=== PATIENT | male | born 1970 | race Caucasian/White ===

== ENCOUNTER 2021-12-29 02:13 | Emergency (ER) | payer BC ==
[2021-12-29 02:41] VITALS: RESP 20; BMI 34.8
[2021-12-29] MEDS ORDERED: THIAMINE HCL 200 MG/2 ML VIAL IVPB ONE (03:34)
[2021-12-29] MEDS ORDERED: SODIUM CHLORIDE 0.9% 500 ML INFUS.BAG IV ONE (03:34)
[2021-12-29] MEDS ORDERED: THIAMINE HCL 200 MG/2 ML VIAL ONE (03:59)
[2021-12-29 04:16] LABS: BASO % 0.4 % (0-2.0); EOS % 0.2 % (0-4.5); HEMATOCRIT 43.1 % (35.4-49); HEMOGLOBIN 15.2 GM/dL (11.7-16.9); LYMPH % 14.4 % (8-40); MCHC 35.3 g/dl (32.0-35.9); MEAN CELL VOLUME 96.1 fl (80-96); MEAN PLT VOLUME 7.8 fl (7.5-11.1); MONO % 5.7 % (3.8-10.2); NEUT % 79.3 % (42.8-82.8); PLATELET COUNT 275 10^3/uL (134-434); RBC 4.48 M/mm3 (4.00-5.60); RDW 13.4 % (11.9-15.9); WHITE BLOOD COUNT 7.9 K/mm3 (4.0-10.0)
[2021-12-29 04:18] LABS: INR 1.12 (0.83-1.09); PROTHROMBIN TIME (PATIENT) 12.9 SEC (9.7-13.0)
[2021-12-29 04:21] LABS: ACTIVATED PTT 31.7 SECONDS (25.2-36.5)
[2021-12-29 04:33] LABS: CALCIUM 9.3 mg/dL (8.5-10.1)
[2021-12-29 04:34] LABS: ALBUMIN 3.8 g/dl (3.4-5.0); BLOOD UREA NITROGEN 14.8 mg/dL (7-18); MAGNESIUM 2.4 mg/dL (1.8-2.4)
[2021-12-29 04:37] LABS: CREATININE 0.8 mg/dL (0.55-1.3); PHOSPHOROUS 3.7 mg/dL (2.5-4.9)
[2021-12-29 04:39] LABS: BILIRUBIN,TOTAL 0.6 mg/dL (0.2-1); TOT PROT 7.4 g/dl (6.4-8.2)
[2021-12-29] MEDS ORDERED: POTASSIUM CHLORIDE TABS 20 MEQ TABLET.ER (FP) PO ONE ×2 (04:42→04:43)
[2021-12-29] MEDS ORDERED: MAGNESIUM SULF 50% (8.12 MEQ/2 ML-1 GM VIAL) IVPB ONE (04:53)
[2021-12-29] MEDS ORDERED: MAGNESIUM SULFATE IN WATER 2 GM/50 ML IVPB IVPB ONE (05:33)
[2021-12-29] MEDS: KCL 10 MEQ IVPB 10 MEQ/100 ML INFUS.BAG IVPB SCH ×3 (06:10→07:48)
[2021-12-29 07:33] VITALS: BP 145/93; PULSE 63; TEMP 97.6
== END 2021-12-29 07:56 | disposition home or self-care (01) ==
LOC: JER 02:13
PROC: 3E033GC Introduction of Other Therapeutic Substance into Peripheral Vein, Percutaneous Approach (ICD-10-PCS; principal; 2021-12-29)
PROC: 3E033GC Introduction of Other Therapeutic Substance into Peripheral Vein, Percutaneous Approach (ICD-10-PCS; 2021-12-29)
DX: R00.2 Palpitations (principal)
CPT/HCPCS: 36415; 71045-TC-FY; 80053; 80307; 83735; 84100; 84484; 85025; 85610; 85730; 93005; 93010; 99285-25